=== PATIENT | female | born 1940 | race Caucasian/White ===

== ENCOUNTER → 2017-02-26 | Outpatient (CLI) | payer MEDICARE, OTHER | LOC: RAD 12:53 | PROVIDERS: ATTEND Internal Medicine | DX: M81.0 Age-related osteoporosis without current pathological fracture (principal) | CPT/HCPCS: 77080 ==

== ENCOUNTER 2019-10-26 13:00 | Inpatient (IN) | payer MEDICARE, OTHER ==
--- NOTE | 2019-10-26 14:48 | ER Document Report ---
ED Medical Screen (RME) - General Chief Complaint: Flank Pain Stated Complaint: LOWER BACK PAIN Time Seen by Provider: 10/26/19 14:45 Primary Care Provider: NORMAN MONTE MD [Primary Care Provider] - Follow up as needed Mode of Arrival: Wheelchair Information source: Patient Notes: Patient presents emergency department with left-sided flank pain for the past couple weeks. Denies fall. Denies injury to her back. Reports she was taking Advil and ibuprofen for the pain and it was working but not helping anymore. She denies fever vomiting diarrhea. She denies pain with void. Reports she has a history of high blood pressure. I have greeted and performed a rapid initial assessment of this patient. A comprehensive ED assessment and evaluation of the patient, analysis of test results and completion of the medical decision making process will be conducted by additional ED providers. TRAVEL OUTSIDE OF THE [place] IN LAST 30 DAYS: No - Related Data Allergies/Adverse Reactions: No Known Allergies Allergy (Verified 10/26/19 14:44) Physical Exam - Vital signs Vitals: Temp Pulse Resp BP Pulse Ox 97.6 F 75 16 160/85 H 94 10/26/19 13:25 10/26/19 13:25 10/26/19 13:25 10/26/19 13:25 10/26/19 13:25 Course - Vital Signs Vital signs: Temp Pulse Resp BP Pulse Ox 97.6 F 75 16 160/85 H 94 10/26/19 13:25 10/26/19 13:25 10/26/19 13:25 10/26/19 13:25 10/26/19 13:25 Doctor's Discharge - Discharge Referrals: NORMAN MONTE MD [Primary Care Provider] - Follow up as needed
[2019-10-26 15:39] LABS: AMORPHOUS SEDIMENT,URINE TRACE /HPF; APPEARANCE,URINE SLIGHTLY-CLOUDY; BILIRUBIN,URINE NEGATIVE (NEGATIVE); COLOR,URINE YELLOW; GLUCOSE, URINE NEGATIVE (NEGATIVE); KETONES,URINE NEGATIVE (NEGATIVE); PROTEIN,URINE 30 mg/dL (NEGATIVE); URINE SPECIFIC GRAVITY 1.009; UROBILINOGEN,URINE NEGATIVE mg/dL (<2.0)
[2019-10-26 16:00] LABS: ALBUMIN 4.5 g/dL (3.5-5.0); ALKALINE PHOSPHATASE 74 U/L (38-126); ANION GAP 15 (5-19); ASPARTATE AMINO TRANSFERASE 31 U/L (14-36); BILIRUBIN,DIRECT 0.2 mg/dL (0.0-0.4); BLOOD UREA NITROGEN 10 mg/dL (7-20); CALCIUM 9.9 mg/dL (8.4-10.2); CARBON DIOXIDE 30 mmol/L (22-30); CHLORIDE 72 mmol/L (98-107); GLUCOSE 131 mg/dL (75-110); TOTAL PROTEIN 8.1 g/dL (6.3-8.2)
[2019-10-26 16:13] LABS: POTASSIUM 2.7 mmol/L (3.6-5.0)
[2019-10-26] MEDS ORDERED: POTASSI CL 40 MEQ/NS 1L 1,000 ML IV PRN (16:14)
--- NOTE | 2019-10-26 17:11 | ER Document Report ---
ED General - General Chief Complaint: Flank Pain Stated Complaint: LOWER BACK PAIN Time Seen by Provider: 10/26/19 14:45 Mode of Arrival: Wheelchair Information source: Patient Notes: 79-year-old woman presents to the emergency department with a complaint of back pain. Son notes that she began complaining of pain after bending over and may have pulled something. She also has had a 3-day history of no bowel movement and thought that she is constipated. Patient has no fever, nausea vomiting, or associated palpitations. TRAVEL OUTSIDE OF THE [place] IN LAST 30 DAYS: No - Related Data Allergies/Adverse Reactions: No Known Allergies Allergy (Verified 10/26/19 14:44) Past Medical History - General Information source: Patient - Social History Smoking Status: Current Every Day Smoker Family History: Reviewed & Not Pertinent Patient has suicidal ideation: No Patient has homicidal ideation: No Review of Systems - Review of Systems Notes: Constitutional: Negative for fever. HENT: Negative for sore throat. Eyes: Negative for visual changes. Cardiovascular: Negative for chest pain. Respiratory: Negative for shortness of breath. Gastrointestinal:+ constipation Genitourinary: Negative for dysuria. Musculoskeletal: + back pain. Skin: Negative for rash. Neurological: Negative for headaches, weakness or numbness. 10 point ROS negative except as marked above and in HPI. Physical Exam - Vital signs Vitals: Temp Pulse Resp BP Pulse Ox 97.6 F 75 16 160/85 H 94 10/26/19 13:25 10/26/19 13:25 10/26/19 13:25 10/26/19 13:25 10/26/19 13:25 - Notes Notes: VS: reviewed GEN: pleasant elderly female in no acute distress, HEENT: NCAT, EOMi, PERRL, oropharynx clear, airway patent, mucous membranes moist, EAC clear, TMs intact, NECK: thyroid not palpable, no LAD, carotic pulse 2+B, no bruits, no JVD RESP: clear the wheezes, rales or rhonchi Chest: heart: regular rate and rhythm, no murmur,gallop or rub, nontender ABD: +BS, distended, nontender, no HSM PULSES: 2+femoral B, 1+ PT/DP B EXT no edema to non-tender; non clubbing, cyanosis Back: No no to significantly + tenderness of lumbar region + SKIN: warm and intact NEURO: AOX3; moves all 4 extremities on command,remainder of exam nonfocal Course - Vital Signs Vital signs: Temp Pulse Resp BP Pulse Ox 98.1 F 73 15 150/78 H 97 10/26/19 21:01 10/26/19 20:01 10/26/19 21:01 10/26/19 21:01 10/26/19 21:01 10/26/19 21:25 Patient with significant hyponatremia, hypokalemia, and UTI. Presented with complaint of back pain. I discussed the patient with the hospitalist , he will admit the patient to the hospital for further evaluation and treatment. I discussed that plan with the patient and her son and they are in agreement with staying in the hospital for further treatment. - Laboratory Result Diagrams: 10/26/19 20:05 10/26/19 15:11 Laboratory results interpreted by me: 10/26/19 10/26/19 10/26/19 15:11 15:11 20:05 WBC 12.9 H MCHC 36.4 H Lymph % (Auto) 12.3 L Absolute Neuts (auto) 10.1 H Sodium 117.1 L* Potassium 2.7 L* Chloride 72 L Glucose 131 H Urine Protein 30 H Urine Blood SMALL H Urine Nitrite (Reflex) POSITIVE H Leukocyte Esterase Rfl LARGE H Discharge - Discharge Clinical Impression: Hyponatremia, Hypokalemia UTI (urinary tract infection) Qualifiers: Urinary tract infection type: site unspecified Hematuria presence: without hematuria Qualified Code(s): N39.0 - Urinary tract infection, site not specified Condition: Good Disposition: ADMITTED INPATIENT Admitting Provider: Tamra (Hospitalist) Unit Admitted: Medical Floor
[2019-10-26] MEDS ORDERED: KETOROLAC TROMETHAMINE INJ/PF 30 MG/1 ML SDV IV ONE (17:14)
--- NOTE | 2019-10-26 18:26 | RADIOLOGY REPORT (SQ) ---
EXAM DESCRIPTION: L SPINE WHOLE COMPLETED DATE/TIME: 10/26/2019 5:52 pm REASON FOR STUDY: back pain COMPARISON: None. NUMBER OF VIEWS: Five views including obliques. TECHNIQUE: AP, lateral, oblique, and sacral radiographic images acquired of the lumbar spine. LIMITATIONS: None. FINDINGS: MINERALIZATION: Osteopenia. SEGMENTATION: Normal. No transitional anatomy. ALIGNMENT: Normal. VERTEBRAE: 50% compression of the T12 vertebral body, chronic appearing. DISCS: Multilevel disc space narrowing with osteophytes. POSTERIOR ELEMENTS: Pedicles and facets are intact. No pars defect or posterior arch defects. Facet arthropathy is present. HARDWARE: None in the spine. PARASPINAL SOFT TISSUES: Atherosclerotic calcifications. PELVIS: Intact as visualized. No fractures or worrisome bone lesions. SI joints intact. OTHER: No other significant finding. IMPRESSION: SPONDYLOSIS. 50% compression of the T12 vertebral body, chronic appearing.. TECHNICAL DOCUMENTATION: JOB ID: [id number] [place]-72 2010 [employer]- All Rights Reserved Reading location - IP/workstation name: [email or web address]
[2019-10-26] MEDS ORDERED: CEFTRIAXONE INJ 1000 MG VIAL IV ONE (19:04)
[2019-10-26 20:22] LABS: HEMATOCRIT 39.9 % (36.0-47.0); HEMOGLOBIN 14.5 g/dL (12.0-15.5); MEAN CORPUSCULAR HEMOGLOBIN 30.9 pg (27.0-33.4); MEAN CORPUSCULAR HGB CONC 36.4 g/dL (32.0-36.0); MEAN CORPUSCULAR VOLUME 85 fl (80-97); RED CELL DISTRIBUTION WIDTH 13.8 % (11.5-14.0); WHITE BLOOD COUNT 12.9 10^3/uL (4.0-10.5)
[2019-10-26 20:23] LABS: ABSOLUTE EOSINOPHILS # (AUTO) 0.1 10^3/uL (0.0-0.6); ABSOLUTE LYMPHOCYTES (AUTO) 1.6 10^3/uL (0.5-4.7); ABSOLUTE MONOCYTES (AUTO) 1.2 10^3/uL (0.1-1.4); ABSOLUTE NEUT (AUTO) 10.1 10^3/uL (1.7-8.2); BASOPHILS % (AUTO) 0.3 % (0-2); EOSINOPHILS % (AUTO) 0.5 % (0-6); LYMPHOCYTES % (AUTO) 12.3 % (13-45); MONOCYTES % (AUTO) 8.9 % (3-13); PLATELET COUNT 233 10^3/uL (150-450); TOTAL CELLS COUNTED % (AUTO) 100 %
[2019-10-26] MEDS ORDERED: ONDANSETRON HCL INJ/PF 4 MG/2 ML SDV IV PRN (21:31)
[2019-10-26] MEDS ORDERED: MAGNESIUM HYDROXIDE SUSP 30 ML UDCUP PO PRN (21:31)
[2019-10-26] MEDS ORDERED: LEVALBUTEROL HCL NEB 0.63 MG/3 ML AMPUL NEB PRN (21:31)
[2019-10-26] MEDS ORDERED: MAG HYDROX/AL HYDROX/SIMETH SUSP 30 ML UDCUP PO PRN (21:31)
[2019-10-26] MEDS ORDERED: NICOTINE 21 MG/24 HR PATCH.TD24 TD PRN (21:36)
[2019-10-26] MEDS ORDERED: MORPHINE SULFATE 10 MG/ML INJ IV PRN ×3 (21:36)
[2019-10-26] MEDS: FAMOTIDINE 20 MG TABLET PO SCH (23:13)
[2019-10-26] MEDS: HEPARIN SOD (PORCINE) 5,000 UNIT/ML 1 ML VIAL SUBCUT SCH (23:13)
[2019-10-27] MEDS ORDERED: POTASSI CL 40 MEQ/NS 1L 1,000 ML IV PRN (00:50)
[2019-10-27] MEDS ORDERED: ATORVASTATIN CALCIUM 10 MG TABLET PO ONE (01:00)
[2019-10-27] MEDS: POTASSI CL 20 MEQ/NS 1L 1,000 ML IV PRN ×3 (01:03→17:56)
--- NOTE | 2019-10-27 01:30 | PDOC H&P ---
History of Present Illness Admission Date/PCP: 10/26/2019 21:12 NORMAN MONTE MD Patient complains of: Left flank pain History of Present Illness: KONG CLARK is a 79 year old female who presented to the emergency room with a 2-week history of left flank pain. Patient admits progressively worsening left flank pain for the last 2 weeks having become severe at this time. She describes the pain as a constant ache in the left flank area without radiation. She denies accompanying or associated signs and symptoms. She is tried using ibuprofen for control of her pain at home and though it initially helped it has not been providing her any relief for the last 2 days. She denies prior similar episodes. She has not identified any aggravating or ameliorating factors for her flank pain. In the emergency room she was found to have pyuria with a positive nitrite, a white blood count of 12,900, a sodium of 117.1 and a potassium of 2.7. Blood and urine cultures were obtained and the patient was started on Rocephin IV. She was subsequently admitted to the hospital for further evaluation and treatment. Past Medical History Cardiac Medical History: Reports: Hyperlipidema, Hypertension Denies: Atrial Fibrillation, Congestive Heart Failure, Coronary Artery Disease, Myocardial Infarction Pulmonary Medical History: Denies: Asthma, Chronic Obstructive Pulmonary Disease (COPD), Respiratory Failure EENT Medical History: Denies: Cataracts, Ears - Hearing aids Neurological Medical History: Denies: Hemorrhagic CVA, Ischemic CVA, Seizures Endocrine Medical History: Reports: Hypothyroidism Denies: Diabetes Mellitus Type 1, Diabetes Mellitus Type 2, Hyperthyroidism, Obesity Renal/ Medical History: Denies: Chronic Kidney Disease, Nephrolithiasis Malignancy Medical History: Reports: None Musculoskeltal Medical History: Reports: Other - Senile osteoporosis Denies: Arthritis, Gout Skin Medical History: Denies: Eczema, Psoriasis Psychiatric Medical History: Denies: Alcohol Dependency, Substance Abuse, Tobacco Dependency Traumatic Medical History: Reports: None Hematology: Denies: Anemia, Bleeding Tendencies Infectious Medical History: Reports: None Past Surgical History Past Surgical History: Reports: Other - Bilateral breast augmentation Social History Information Source: Patient Lives with: Spouse/Significant other Smoking Status: Current Every Day Smoker Electronic Cigarette use?: No Frequency of Alcohol Use: None Hx Recreational Drug Use: No Drugs: None Hx Prescription Drug Abuse: No - Advance Directive Resuscitation Status: Full Code Surrogate healthcare decision maker:: Bennett Clark Family History Family History: Hyperlipidemia, Hypertension, Thyroid Disfunction. denies: CAD, DM, Malignancy Parental Family History Reviewed: Yes Children Family History Reviewed: No Sibling(s) Family History Reviewed.: Yes Medication/Allergy Home Medications: Atenolol [Tenormin 50 mg Tablet] 50 mg PO DAILY 10/26/19 Atorvastatin Calcium [Lipitor 10 mg Tablet] 10 mg PO QHS 10/26/19 Cetirizine HCl [Zyrtec 10 mg Tablet] 10 mg PO DAILY 10/26/19 Furosemide [Lasix 20 mg Tablet] 20 mg PO DAILY 10/26/19 Hydrochlorothiazide [Hydrodiuril 12.5 mg Tablet] 12.5 mg PO DAILY 10/26/19 Levothyroxine Sodium [Synthroid 0.075 mg Tablet] 0.075 mg PO Q6AM 10/26/19 Nifedipine [Procardia Xl] 90 mg PO DAILY 10/26/19 Umeclidinium Brm/Vilanterol Tr [Anoro Ellipta 62.5-25 Mcg INH] 1 each IH DAILY 10/26/19 Allergies/Adverse Reactions: No Known Allergies Allergy (Verified 10/26/19 14:44) Review of Systems Constitutional: ABSENT: chills, fever(s) Eyes: ABSENT: visual disturbances, other - Eye pain Ears: ABSENT: hearing changes, other - Ear pain Nose, Mouth, and Throat: ABSENT: headache(s), mouth pain, sore throat Cardiovascular: ABSENT: chest pain, palpitations Respiratory: ABSENT: cough, dyspnea Gastrointestinal: PRESENT: constipation - X1 week. ABSENT: abdominal pain, diarrhea, nausea, vomiting Genitourinary: PRESENT: as per HPI, other - Left flank pain. ABSENT: difficulty urinating, dysuria, hematuria, nocturia Musculoskeletal: ABSENT: back pain, joint swelling, muscle weakness Integumentary: ABSENT: pruritus, rash Neurological: ABSENT: confusion, convulsions, focal weakness, memory loss, syncope Psychiatric: ABSENT: anxiety, depression Endocrine: ABSENT: cold intolerance, heat intolerance Hematologic/Lymphatic: ABSENT: easy bleeding, easy bruising Allergic/Immunologic: ABSENT: seasonal rhinorrhea Physical Exam Vital Signs: Temp Pulse Resp BP Pulse Ox 98 F 73 16 174/74 H 98 10/26/19 20:01 10/26/19 20:01 10/26/19 20:01 10/26/19 20:01 10/26/19 20:01 Intake & Output 10/24/19 10/25/19 10/26/19 23:59 23:59 23:59 Weight 69.3 kg General appearance: PRESENT: no acute distress, cooperative Head exam: PRESENT: atraumatic, normocephalic Eye exam: PRESENT: conjunctiva pink. ABSENT: conjunctival injection, scleral icterus Ear exam: PRESENT: normal external ear exam. ABSENT: bleeding, drainage Mouth exam: PRESENT: dry mucosa, neck supple Neck exam: ABSENT: JVD, thyromegaly, tracheal deviation Respiratory exam: PRESENT: clear to auscultation kamilah, symmetrical, unlabored Cardiovascular exam: PRESENT: RRR. ABSENT: clicks, gallop, rubs Pulses: PRESENT: normal radial pulses, normal dorsalis pedis pul Vascular exam: PRESENT: normal capillary refill. ABSENT: pallor GI/Abdominal exam: PRESENT: normal bowel sounds, soft, tenderness - Severe left flank tenderness to percussion/palpation Rectal exam: PRESENT: deferred Extremities exam: ABSENT: joint swelling, pedal edema Musculoskeletal exam: ABSENT: deformity, dislocation Neurological exam: PRESENT: alert, oriented to person, oriented to place, oriented to time, oriented to situation, CN II-XII grossly intact. ABSENT: motor sensory deficit Psychiatric exam: PRESENT: appropriate affect, normal mood Skin exam: PRESENT: dry, intact, warm. ABSENT: jaundice, rash, urticaria Results Laboratory Results: 10/26/19 20:05 10/26/19 15:11 10/26/19 10/26/19 10/26/19 15:11 15:11 15:11 WBC Cancelled RBC Cancelled Hgb Cancelled Hct Cancelled MCV Cancelled MCH Cancelled MCHC Cancelled RDW Cancelled Plt Count Cancelled Seg Neutrophils % Cancelled Sodium 117.1 L* Potassium 2.7 L* Chloride 72 L Carbon Dioxide 30 Anion Gap 15 BUN 10 Creatinine 0.55 Est GFR ( Amer) > 60 Glucose 131 H Calcium 9.9 Total Bilirubin 1.0 AST 31 Alkaline Phosphatase 74 Total Protein 8.1 Albumin 4.5 Urine Color YELLOW Urine Appearance SLIGHTLY-CLOUDY Urine pH 6.0 Ur Specific [place] 1.009 Urine Protein 30 H Urine Glucose (UA) NEGATIVE Urine Ketones NEGATIVE Urine Blood SMALL H Urine RBC (Auto) 6 10/26/19 10/26/19 16:55 20:05 WBC Cancelled 12.9 H RBC Cancelled 4.70 Hgb Cancelled 14.5 Hct Cancelled 39.9 MCV Cancelled 85 MCH Cancelled 30.9 MCHC Cancelled 36.4 H RDW Cancelled 13.8 Plt Count Cancelled 233 Seg Neutrophils % Cancelled 78.0 Sodium Potassium Chloride Carbon Dioxide Anion Gap BUN Creatinine Est GFR ( Amer) Glucose Calcium Total Bilirubin AST Alkaline Phosphatase Total Protein Albumin Urine Color Urine Appearance Urine pH Ur Specific [place] Urine Protein Urine Glucose (UA) Urine Ketones Urine Blood Urine RBC (Auto) Impressions: Lumbar Spine X-Ray 10/26/19 17:13 IMPRESSION: SPONDYLOSIS. 50% compression of the T12 vertebral body, chronic appearing.. Assessment and Plan - Diagnosis (1) UTI (urinary tract infection) Qualifiers: Urinary tract infection type: acute pyelonephritis Qualified Code(s): N10 - Acute pyelonephritis Is this a current diagnosis for this admission?: Yes (2) Hyponatremia Is this a current diagnosis for this admission?: Yes (3) Hypokalemia Is this a current diagnosis for this admission?: Yes (4) Essential hypertension Is this a current diagnosis for this admission?: Yes (5) Hyperlipidemia, unspecified Qualifiers: Hyperlipidemia type: unspecified Qualified Code(s): E78.5 - Hyperlipidemia, unspecified Is this a current diagnosis for this admission?: Yes (6) Hypothyroidism Qualifiers: Hypothyroidism type: acquired Qualified Code(s): E03.9 - Hypothyroidism, unspecified Is this a current diagnosis for this admission?: Yes (7) Senile osteoporosis Is this a current diagnosis for this admission?: Yes (8) Tobacco use disorder, continuous Is this a current diagnosis for this admission?: Yes - Plan Summary Summary: Patient is admitted to the medical floor where she will receive routine supportive and symptomatic cares. She will be treated with IV fluid utilizing normal saline with 20 mEq of KCl per liter at 167 mL/h. She will also be star vadim on oral supplements for potassium and sodium utilizing potassium chloride extended release and sodium bicarbonate. She will receive IV antibiotics with Rocephin 1 g every 24 hours pending results of her blood and urine cultures. She will receive morphine sulfate 2 to 4 mg IV every 2 hours on a as needed basis using a sliding pain scale for dosage. Daily CBCs and metabolic profiles with magnesium levels will be obtained as needed. Patient will be continued on her usual home medications once her medication list has been verified and reconciled. - Time Time Spent with patient: 15-24 minutes Smoking Cessation Education: 3 to 10 minutes Medications reviewed and adjusted accordingly: Yes Anticipated discharge: Home - Inpatient Certification Based on my medical assessment, after consideration of the patient's comorbidities, presenting symptoms, or acuity I expect that the services needed warrant INPATIENT care.: Yes I certify that my determination is in accordance with my understanding of Medicare's requirements for reasonable and necessary INPATIENT services [42 CFR 412.3e].: Yes Medical Necessity: Need Close Monitoring Due to Risk of Patient Decompensation, Need For IV Fluids, Need for Pain Control, Need for IV Antibiotics
[2019-10-27] MEDS: LEVOTHYROXINE SODIUM 0.075 MG TABLET PO SCH (05:28)
[2019-10-27] MEDS: HEPARIN SOD (PORCINE) 5,000 UNIT/ML 1 ML VIAL SUBCUT SCH ×3 (05:28→21:24)
[2019-10-27 06:08] LABS: ALBUMIN 3.5 g/dL (3.5-5.0); ALKALINE PHOSPHATASE 59 U/L (38-126); ASPARTATE AMINO TRANSFERASE 26 U/L (14-36); BILIRUBIN,DIRECT 0.2 mg/dL (0.0-0.4); BILIRUBIN,TOTAL 0.7 mg/dL (0.2-1.3); BLOOD UREA NITROGEN 10 mg/dL (7-20); CALCIUM 8.3 mg/dL (8.4-10.2); CARBON DIOXIDE 30 mmol/L (22-30); CHLORIDE 79 mmol/L (98-107); CHOLESTEROL 127.39 mg/dL (0-200); DIRECT LDL 54 mg/dL (<100); GLUCOSE 99 mg/dL (75-110); TOTAL PROTEIN 6.2 g/dL (6.3-8.2); TRIGLYCERIDES 89 mg/dL (<150)
[2019-10-27 06:15] LABS: ANION GAP 10 (5-19)
[2019-10-27 06:18] LABS: POTASSIUM 2.7 mmol/L (3.6-5.0)
[2019-10-27 07:07] LABS: HEMATOCRIT 35.7 % (36.0-47.0); MEAN CORPUSCULAR HEMOGLOBIN 30.9 pg (27.0-33.4); MEAN CORPUSCULAR HGB CONC 36.3 g/dL (32.0-36.0); MEAN CORPUSCULAR VOLUME 85 fl (80-97); RED BLOOD COUNT 4.19 10^6/uL (3.72-5.28); RED CELL DISTRIBUTION WIDTH 13.4 % (11.5-14.0); WHITE BLOOD COUNT 10.1 10^3/uL (4.0-10.5)
[2019-10-27 08:01] LABS: PLATELET COUNT 242 10^3/uL (150-450)
[2019-10-27] MEDS: SODIUM BICARBONATE 650 MG TABLET PO SCH ×4 (08:24→21:23)
[2019-10-27] MEDS: POTASSIUM CHLORIDE 10 MEQ TABLET.ER PO SCH ×3 (08:24→17:49)
[2019-10-27] MEDS: FAMOTIDINE 20 MG TABLET PO SCH ×2 (10:21→21:23)
[2019-10-27] MEDS: CEFTRIAXONE 1 GM/D5W RTU 1 GM/50 ML RTUPB IV SCH (10:21)
[2019-10-27] MEDS: CETIRIZINE 10 MG TABLET PO SCH (10:21)
[2019-10-27] MEDS: DOCUSATE SODIUM 100 MG CAPSULE PO SCH ×2 (10:21→17:49)
[2019-10-27] MEDS: ATENOLOL 50 MG TABLET PO SCH (10:21)
[2019-10-27] MEDS: ACETAMINOPHEN 325 MG TABLET PO PRN (10:24)
[2019-10-27] MEDS ORDERED: MORPHINE SULFATE 10 MG/ML INJ IV PRN (11:59)
[2019-10-27 15:34] LABS: ANION GAP 11 (5-19); BLOOD UREA NITROGEN 13 mg/dL (7-20); CALCIUM 8.2 mg/dL (8.4-10.2); CARBON DIOXIDE 27 mmol/L (22-30); CHLORIDE 82 mmol/L (98-107); GLUCOSE 137 mg/dL (75-110); POTASSIUM 3.2 mmol/L (3.6-5.0)
--- NOTE | 2019-10-27 18:13 | PDOC PROGRESS REPORT ---
Subjective Progress Note for:: 10/27/19 Subjective:: The patient is an 79 year old female with a past medical history of HTN, HLD, and hypothyroidism who was admitted 10/26/19 for pyleonephritis. The patient was seen on afternoon rounds. She was found resting in bed, comfortably, on room air. She reports that her pain is significantly improved. She does report continued flank pain, though significantly improved. She denies urinary urgency or frequency at this time. She further denies fever, chills, headache, blurred vision, chest pain, palpitations, dyspnea, orthopnea, cough, abdominal pain, nausea and vomiting. She has no questions or concerns at this time. No concerns per nursing. Reason For Visit: ACUTE LEFT PYELONEPHRITIS,HYPONATUREMIA,HYPOKALEMI Physical Exam Vital Signs: Temp Pulse Resp BP Pulse Ox 97.8 F 73 16 161/68 H 94 10/27/19 01:09 10/27/19 01:09 10/27/19 01:09 10/27/19 01:09 10/27/19 01:09 Intake & Output 10/26/19 10/27/19 10/28/19 06:59 06:59 06:59 Intake Total 220 1050 Balance 220 1050 Weight 68 kg General appearance: PRESENT: no acute distress, well-developed, well-nourished Head exam: PRESENT: atraumatic, normocephalic Eye exam: PRESENT: conjunctiva pink, EOMI, PERRLA. ABSENT: scleral icterus Ear exam: PRESENT: normal external ear exam Mouth exam: PRESENT: moist, tongue midline Neck exam: ABSENT: carotid bruit, JVD, lymphadenopathy, thyromegaly Respiratory exam: PRESENT: clear to auscultation kamilah. ABSENT: rales, rhonchi, wheezes Cardiovascular exam: PRESENT: RRR. ABSENT: diastolic murmur, rubs, systolic murmur Pulses: PRESENT: normal dorsalis pedis pul Vascular exam: PRESENT: normal capillary refill GI/Abdominal exam: PRESENT: normal bowel sounds, soft. ABSENT: distended, guarding, mass, organolmegaly, rebound, tenderness Rectal exam: PRESENT: deferred Extremities exam: PRESENT: full ROM. ABSENT: calf tenderness, clubbing, pedal edema Musculoskeletal exam: PRESENT: ambulatory Neurological exam: PRESENT: alert, awake, oriented to person, oriented to place, oriented to time, oriented to situation, CN II-XII grossly intact. ABSENT: motor sensory deficit Psychiatric exam: PRESENT: appropriate affect, normal mood. ABSENT: homicidal ideation, suicidal ideation Skin exam: PRESENT: dry, intact, warm. ABSENT: cyanosis, rash Results Laboratory Results: 10/27/19 06:59 10/27/19 14:56 10/26/19 10/26/19 10/26/19 15:11 16:55 20:05 WBC Cancelled 12.9 H RBC Cancelled 4.70 Hgb Cancelled 14.5 Hct Cancelled 39.9 MCV Cancelled 85 MCH Cancelled 30.9 MCHC Cancelled 36.4 H RDW Cancelled 13.8 Plt Count Cancelled 233 Seg Neutrophils % Cancelled 78.0 Sodium Potassium Chloride Carbon Dioxide Anion Gap BUN Creatinine Est GFR ( Amer) Glucose Calcium Magnesium 1.3 L Total Bilirubin AST Alkaline Phosphatase Total Protein Albumin Triglycerides Cholesterol LDL Cholesterol Direct VLDL Cholesterol HDL Cholesterol TSH 10/27/19 10/27/19 10/27/19 04:48 04:48 04:48 WBC Cancelled RBC Cancelled Hgb Cancelled Hct Cancelled MCV Cancelled MCH Cancelled MCHC Cancelled RDW Cancelled Plt Count Cancelled Seg Neutrophils % Sodium 119.1 L* Potassium 2.7 L* Chloride 79 L Carbon Dioxide 30 Anion Gap 10 BUN 10 Creatinine 0.50 L Est GFR ( Amer) > 60 Glucose 99 Calcium 8.3 L Magnesium 1.3 L Total Bilirubin 0.7 AST 26 Alkaline Phosphatase 59 Total Protein 6.2 L Albumin 3.5 Triglycerides 89 Cholesterol 127.39 LDL Cholesterol Direct 54 VLDL Cholesterol 18.0 HDL Cholesterol 54 TSH 2.53 10/27/19 10/27/19 06:59 14:56 WBC 10.1 RBC 4.19 Hgb 13.0 Hct 35.7 L MCV 85 MCH 30.9 MCHC 36.3 H RDW 13.4 Plt Count 242 Seg Neutrophils % Sodium 120.2 L* Potassium 3.2 L Chloride 82 L Carbon Dioxide 27 Anion Gap 11 BUN 13 Creatinine 0.58 Est GFR ( Amer) > 60 Glucose 137 H Calcium 8.2 L Magnesium Total Bilirubin AST Alkaline Phosphatase Total Protein Albumin Triglycerides Cholesterol LDL Cholesterol Direct VLDL Cholesterol HDL Cholesterol TSH Impressions: Lumbar Spine X-Ray 10/26/19 17:13 IMPRESSION: SPONDYLOSIS. 50% compression of the T12 vertebral body, chronic appearing.. Assessment and Plan - Diagnosis (1) Pyelonephritis Is this a current diagnosis for this admission?: Yes Plan: Blood cultures pending. Urine culture shows gram-negative rods. Patient was admitted to the medical floor. She is empirically placed on IV Rocephin. We will continue IV fluids. Antiemetics and analgesics as needed. (2) Essential hypertension Is this a current diagnosis for this admission?: Yes Plan: We will continue the patient's home medication regiment of atenolol and Procard ia. Cardiac diet. (3) Hyperlipidemia, unspecified Qualifiers: Hyperlipidemia type: unspecified Qualified Code(s): E78.5 - Hyperlipidemia, unspecified Is this a current diagnosis for this admission?: Yes Plan: Continue home dose statin. Cardiac diet. (4) Hypokalemia Is this a current diagnosis for this admission?: Yes Plan: The patient has received a combination of IV and p.o. replacement. Serial chemistries and continue to replace as needed. (5) Hyponatremia Is this a current diagnosis for this admission?: Yes Plan: Improved; 117-> 120 Continue gentle maintenance IV fluids. Serial chemistries. Seizure precautions. Fall precautions. (6) Hypothyroidism Qualifiers: Hypothyroidism type: acquired Qualified Code(s): E03.9 - Hypothyroidism, unspecified Is this a current diagnosis for this admission?: Yes Plan: TSH 2.53. Continue home dose levothyroxine. (7) Senile osteoporosis Is this a current diagnosis for this admission?: Yes Plan: Continue home dose calcium. Fall precautions. (8) Tobacco use disorder, continuous Is this a current diagnosis for this admission?: Yes Plan: Smoking cessation encouraged. Nicotine replacements provided. (9) UTI (urinary tract infection) Qualifiers: Urinary tract infection type: acute pyelonephritis Qualified Code(s): N10 - Acute pyelonephritis Is this a current diagnosis for this admission?: Yes Plan: Evaluation management as a #1. - Time Time Spent with patient: 25-34 minutes Medications reviewed and adjusted accordingly: Yes Anticipated discharge: Home Within: within 72 hours - Pending electrolyte correction.
[2019-10-27] MEDS ORDERED: NORMAL SALINE 1000 ML 1,000 ML IV PRN (19:06)
[2019-10-27] MEDS: ATORVASTATIN CALCIUM 10 MG TABLET PO SCH (21:23)
[2019-10-27] MEDS: MELATONIN 5 MG TABLET PO PRN (21:23)
[2019-10-27 22:49] LABS: ANION GAP 8 (5-19); BLOOD UREA NITROGEN 13 mg/dL (7-20); CARBON DIOXIDE 29 mmol/L (22-30); CHLORIDE 86 mmol/L (98-107); GLUCOSE 120 mg/dL (75-110); POTASSIUM 3.9 mmol/L (3.6-5.0)
[2019-10-28 05:04] LABS: ANION GAP 8 (5-19); BLOOD UREA NITROGEN 9 mg/dL (7-20); CALCIUM 8.2 mg/dL (8.4-10.2); CARBON DIOXIDE 28 mmol/L (22-30); CHLORIDE 92 mmol/L (98-107); GLUCOSE 109 mg/dL (75-110); POTASSIUM 3.8 mmol/L (3.6-5.0)
[2019-10-28] MEDS: LEVOTHYROXINE SODIUM 0.075 MG TABLET PO SCH (05:31)
[2019-10-28] MEDS: HEPARIN SOD (PORCINE) 5,000 UNIT/ML 1 ML VIAL SUBCUT SCH ×3 (05:31→21:04)
[2019-10-28] MEDS: POTASSIUM CHLORIDE 10 MEQ TABLET.ER PO SCH (08:07)
[2019-10-28] MEDS: CALCIUM CARBONATE 500 MG TABLET PO SCH ×2 (09:23→18:14)
[2019-10-28] MEDS: DOCUSATE SODIUM 100 MG CAPSULE PO SCH ×2 (09:23→18:14)
[2019-10-28] MEDS: FAMOTIDINE 20 MG TABLET PO SCH ×2 (09:23→21:04)
[2019-10-28] MEDS: CETIRIZINE 10 MG TABLET PO SCH (09:23)
[2019-10-28] MEDS: ATENOLOL 50 MG TABLET PO SCH (09:23)
[2019-10-28] MEDS: NIFEDIPINE 30 MG TAB.ER.24 PO SCH (09:24)
[2019-10-28] MEDS: CEFTRIAXONE 1 GM/D5W RTU 1 GM/50 ML RTUPB IV SCH (09:24)
[2019-10-28] MEDS ORDERED: NIFEDIPINE 90 MG PO SCH (10:00)
[2019-10-28] MEDS: OXYCODONE-ACETAMINOPHEN 5-325 MG TABLET PO PRN (13:47)
--- NOTE | 2019-10-28 15:58 | PDOC PROGRESS REPORT ---
Subjective Progress Note for:: 10/28/19 Subjective:: The patient is an 79 year old female with a past medical history of HTN, HLD, and hypothyroidism who was admitted 10/26/19 for pyleonephritis. The patient was seen on afternoon rounds. She was found resting in bed, comfortably, on room air. She reports that her pain is significantly improved. She denies urinary urgency or frequency at this time. Hopeful to discharge home soon. She further denies fever, chills, headache, blurred vision, chest pain, palpitations, dyspnea, orthopnea, cough, abdominal pain, nausea and vomiting. She has no questions or concerns at this time. No concerns per nursing. Reason For Visit: ACUTE LEFT PYELONEPHRITIS,HYPONATUREMIA,HYPOKALEMI Physical Exam Vital Signs: Temp Pulse Resp BP Pulse Ox 98.0 F 50 L 16 126/58 H 97 10/27/19 16:16 10/27/19 16:16 10/27/19 16:16 10/27/19 16:16 10/27/19 16:16 Intake & Output 10/27/19 10/28/19 10/29/19 06:59 06:59 06:59 Intake Total 220 2490 50 Output Total 500 Balance 220 1989 50 Weight 68 kg 68.5 kg General appearance: PRESENT: no acute distress, cooperative, well-developed, well-nourished Head exam: PRESENT: atraumatic, normocephalic Eye exam: PRESENT: conjunctiva pink, EOMI, PERRLA. ABSENT: scleral icterus Ear exam: PRESENT: normal external ear exam Mouth exam: PRESENT: moist, tongue midline Respiratory exam: PRESENT: clear to auscultation kamilah, symmetrical, unlabored. ABSENT: rales, rhonchi, wheezes Cardiovascular exam: PRESENT: RRR, +S1, +S2. ABSENT: diastolic murmur, rubs, systolic murmur Pulses: PRESENT: normal dorsalis pedis pul Vascular exam: PRESENT: normal capillary refill GI/Abdominal exam: PRESENT: normal bowel sounds, soft. ABSENT: distended, guarding, mass, organolmegaly, rebound, tenderness Rectal exam: PRESENT: deferred Extremities exam: PRESENT: full ROM. ABSENT: calf tenderness, clubbing, pedal edema Neurological exam: PRESENT: alert, awake, oriented to person, oriented to place, oriented to time, oriented to situation, CN II-XII grossly intact. ABSENT: motor sensory deficit Psychiatric exam: PRESENT: appropriate affect, normal mood. ABSENT: homicidal ideation, suicidal ideation Skin exam: PRESENT: dry, intact, warm. ABSENT: cyanosis, rash Results Laboratory Results: 10/27/19 06:59 10/28/19 04:15 10/27/19 10/27/19 10/28/19 14:56 22:10 04:15 Sodium 120.2 L* 123.0 L 128.1 L Potassium 3.2 L 3.9 3.8 Chloride 82 L 86 L 92 L Carbon Dioxide 27 29 28 Anion Gap 11 8 8 BUN 13 13 9 Creatinine 0.58 0.70 0.60 Est GFR ( Amer) > 60 > 60 > 60 Glucose 137 H 120 H 109 Calcium 8.2 L 8.0 L 8.2 L 10/26/19 15:11 Clean Catch Midstream Urine Culture - Final Escherichia Coli Impressions: Lumbar Spine X-Ray 10/26/19 17:13 IMPRESSION: SPONDYLOSIS. 50% compression of the T12 vertebral body, chronic appearing.. Assessment and Plan - Diagnosis (1) Pyelonephritis Is this a current diagnosis for this admission?: Yes Plan: Blood cultures are negative at 24 hours. Urine culture shows pansensitive E. coli. Patient was admitted to the medical floor. She is empirically placed on IV Rocephin. Antiemetics and analgesics as needed. (2) Essential hypertension Is this a current diagnosis for this admission?: Yes Plan: We will continue the patient's home medication regiment of atenolol and Procardia. Cardiac diet. (3) Hyperlipidemia, unspecified Qualifiers: Hyperlipidemia type: unspecified Qualified Code(s): E78.5 - Hyperlipidemia, unspecified Is this a current diagnosis for this admission?: Yes Plan: Continue home dose statin. Cardiac diet. (4) Hypokalemia Is this a current diagnosis for this admission?: Yes Plan: Replete Follow-up chemistry and replace as needed. (5) Hyponatremia Is this a current diagnosis for this admission?: Yes Plan: Improved; 117-> 120-> 128 Fluid restricted to 1.5 L daily. Follow-up chemistry Seizure precautions. Fall precautions. (6) Hypothyroidism Qualifiers: Hypothyroidism type: acquired Qualified Code(s): E03.9 - Hypothyroidism, unspecified Is this a current diagnosis for this admission?: Yes Plan: TSH 2.53. Continue home dose levothyroxine. (7) Senile osteoporosis Is this a current diagnosis for this admission?: Yes Plan: Continue home dose calcium. Fall precautions. (8) Tobacco use disorder, continuous Is this a current diagnosis for this admission?: Yes Plan: Smoking cessation encouraged. Nicotine replacements provided. (9) UTI (urinary tract infection) Qualifiers: Urinary tract infection type: acute pyelonephritis Qualified Code(s): N10 - Acute pyelonephritis Is this a current diagnosis for this admission?: Yes Plan: Evaluation management as a #1. - Time Time Spent with patient: 15-24 minutes Medications reviewed and adjusted accordingly: Yes Anticipated discharge: Home Within: within 24 hours
[2019-10-28] MEDS: ATORVASTATIN CALCIUM 10 MG TABLET PO SCH (21:04)
[2019-10-28] MEDS: MELATONIN 5 MG TABLET PO PRN (21:04)
[2019-10-29] MEDS: OXYCODONE-ACETAMINOPHEN 5-325 MG TABLET PO PRN (05:54)
[2019-10-29] MEDS: HEPARIN SOD (PORCINE) 5,000 UNIT/ML 1 ML VIAL SUBCUT SCH ×2 (05:54→13:39)
[2019-10-29] MEDS: LEVOTHYROXINE SODIUM 0.075 MG TABLET PO SCH (05:54)
[2019-10-29 06:18] LABS: ANION GAP 10 (5-19); BLOOD UREA NITROGEN 10 mg/dL (7-20); CALCIUM 8.7 mg/dL (8.4-10.2); CARBON DIOXIDE 28 mmol/L (22-30); CHLORIDE 89 mmol/L (98-107); GLUCOSE 105 mg/dL (75-110); POTASSIUM 3.3 mmol/L (3.6-5.0)
[2019-10-29] MEDS: ACETAMINOPHEN 325 MG TABLET PO PRN (09:17)
[2019-10-29] MEDS: ATENOLOL 50 MG TABLET PO SCH (09:18)
[2019-10-29] MEDS: DOCUSATE SODIUM 100 MG CAPSULE PO SCH (09:18)
[2019-10-29] MEDS: CEFTRIAXONE 1 GM/D5W RTU 1 GM/50 ML RTUPB IV SCH (09:18)
[2019-10-29] MEDS: FAMOTIDINE 20 MG TABLET PO SCH (09:18)
[2019-10-29] MEDS: NIFEDIPINE 30 MG TAB.ER.24 PO SCH (09:18)
[2019-10-29] MEDS: CETIRIZINE 10 MG TABLET PO SCH (09:18)
[2019-10-29] MEDS: CALCIUM CARBONATE 500 MG TABLET PO SCH (09:18)
[2019-10-29] MEDS ORDERED: SODIUM CHLORIDE 1 GM TABLET PO SCH (12:00)
[2019-10-29] MEDS ORDERED: MAGNESIUM HYDROXIDE SUSP 30 ML UDCUP PO ONE (15:15)
[2019-10-29] MEDS ORDERED: BISACODYL 10 MG SUPP.RECT PR ONE (15:15)
[2019-10-29 16:25] LABS: ANION GAP 10 (5-19); BLOOD UREA NITROGEN 15 mg/dL (7-20); CALCIUM 8.8 mg/dL (8.4-10.2); CARBON DIOXIDE 28 mmol/L (22-30); CHLORIDE 88 mmol/L (98-107); GLUCOSE 103 mg/dL (75-110); POTASSIUM 4.1 mmol/L (3.6-5.0)
--- NOTE | 2019-10-29 16:50 | PDOC DISCHARGE SUMMARY ---
Impression - Admit/DC Date/PCP Admission Date/Primary Care Provider: 10/26/19 21:08 NORMAN MONTE MD Discharge Date: 10/29/19 - Discharge Diagnosis (1) Pyelonephritis Is this a current diagnosis for this admission?: Yes (2) Essential hypertension Is this a current diagnosis for this admission?: Yes (3) Hyperlipidemia, unspecified Is this a current diagnosis for this admission?: Yes (4) Hypokalemia Is this a current diagnosis for this admission?: Yes (5) Hyponatremia Is this a current diagnosis for this admission?: Yes (6) Hypothyroidism Is this a current diagnosis for this admission?: Yes (7) Senile osteoporosis Is this a current diagnosis for this admission?: Yes (8) Tobacco use disorder, continuous Is this a current diagnosis for this admission?: Yes (9) UTI (urinary tract infection) Is this a current diagnosis for this admission?: Yes - Additional Information Resuscitation Status: Full Code Discharge Diet: Other (Comments) - Fluid restricted to 2 L daily Discharge Activity: Activity As Tolerated, Balance Activity w/Rest Referrals: NORMAN MONTE MD [Primary Care Provider] - 11/09/19 10:00 am Prescriptions: Nicotine [Nicoderm 21 mg/24 Hr Transderm Patch] 1 each TD DAILYP PRN #30 patch.td24 PRN Reason: Sodium Chloride [Sodium Chloride 1 gm Tablet] 1 gm PO BID #20 tablet Home Medications: Atenolol [Tenormin 50 mg Tablet] 50 mg PO DAILY 10/26/19 Atorvastatin Calcium [Lipitor 10 mg Tablet] 10 mg PO QHS 10/26/19 Cetirizine HCl [Zyrtec 10 mg Tablet] 10 mg PO DAILY 10/26/19 Levothyroxine Sodium [Synthroid 0.075 mg Tablet] 0.075 mg PO Q6AM 10/26/19 Nifedipine [Procardia Xl] 90 mg PO DAILY 10/26/19 Umeclidinium Brm/Vilanterol Tr [Anoro Ellipta 62.5-25 Mcg INH] 1 each IH DAILY 10/26/19 Calcium Carbonate [Os-Eduardo 500 mg Tablet (Oyster-Shell)] 500 mg PO BID 10/27/19 Acetaminophen [Tylenol 325 mg Tablet] 650 mg PO Q4HP PRN tablet 10/29/19 Docusate Sodium [Colace 100 mg Capsule] 100 mg PO BID capsule 10/29/19 Nicotine [Nicoderm 21 mg/24 Hr Transderm Patch] 1 each TD DAILYP PRN #30 patch.td24 10/29/19 Sodium Chloride [Sodium Chloride 1 gm Tablet] 1 gm PO BID #20 tablet 10/29/19 History of Present Illiness History of Present Illness: Per H&P by Tamra: KONG CLARK is a 79 year old female who presented to the emergency room with a 2-week history of left flank pain. Patient admits progressively worsening left flank pain for the last 2 weeks having become severe at this time. She describes the pain as a constant ache in the left flank area without radiation. She denies accompanying or associated signs and symptoms. She is tried using ibuprofen for control of her pain at home and though it initially helped it has not been providing her any relief for the last 2 days. She denies prior similar episodes. She has not identified any aggravating or ameliorating factors for her flank pain. In the emergency room she was found to have pyuria with a positive nitrite, a white blood count of 12,900, a sodium of 117.1 and a potassium of 2.7. Blood and urine cultures were obtained and the patient was started on Rocephin IV. She was subsequently admitted to the hospital for further evaluation and treatment. Hospital Course Hospital Course: The patient was admitted to the medical floor. She is empirically placed on IV Rocephin for treatment of her UTI/pyelonephritis. Urine cultures demonstrated pansensitive E. coli. Fortunately her blood cultures are negative at 48 hours. The patient's electrolytes were monitored closely; she did receive p.o. and IV potassium supplementation. She was placed on a fluid restriction with subsequent increase in her sodium from 117 to 128. Discussed the patient's hyponatremia with the patient and her son. Both report that the patient's primary care provider had been aware of low sodium for quite some time. She remained asymptomatic and had no signs of acute hyponatremia. Patient's home dose furosemide and hydrochlorothiazide are discontinued. She is provided sodium chloride 1 g tablet to take twice daily. She is recommended to continue fluid restriction at home. At discharge, her sodium has stabilized at 126.2. The patient's other chronic medical conditions remained stable throughout her admission. Patient is discharged home in stable condition. She is advised to follow-up with her primary care provider within 1 week. Recommend that she have repeat chemistry at that time. Complete full course of Cipro for treatment of UTI/pyelonephritis. Return to the emergency department as needed for concerning symptoms. Physical Exam Vital Signs: Temp Pulse Resp BP Pulse Ox 98.0 F 63 16 126/47 H 92 10/28/19 21:22 10/29/19 13:42 10/29/19 13:42 10/28/19 21:22 10/29/19 13:42 Intake & Output 10/28/19 10/29/19 10/30/19 06:59 06:59 06:59 Intake Total 2490 1810 50 Output Total 500 Balance 1989 1809 50 Weight 68.5 kg 68.3 kg General appearance: PRESENT: no acute distress, well-developed, well-nourished Head exam: PRESENT: atraumatic, normocephalic Eye exam: PRESENT: conjunctiva pink, EOMI, PERRLA. ABSENT: scleral icterus Ear exam: PRESENT: normal external ear exam Mouth exam: PRESENT: moist, tongue midline Neck exam: ABSENT: carotid bruit, JVD, lymphadenopathy, thyromegaly Respiratory exam: PRESENT: clear to auscultation kamilah. ABSENT: rales, rhonchi, wheezes Cardiovascular exam: PRESENT: RRR. ABSENT: diastolic murmur, rubs, systolic murmur Pulses: PRESENT: normal dorsalis pedis pul Vascular exam: PRESENT: normal capillary refill GI/Abdominal exam: PRESENT: normal bowel sounds, soft. ABSENT: distended, guarding, mass, organolmegaly, rebound, tenderness Rectal exam: PRESENT: deferred Extremities exam: PRESENT: full ROM. ABSENT: calf tenderness, clubbing, pedal edema Neurological exam: PRESENT: alert, awake, oriented to person, oriented to place, oriented to time, oriented to situation, CN II-XII grossly intact. ABSENT: motor sensory deficit Psychiatric exam: PRESENT: appropriate affect, normal mood. ABSENT: homicidal ideation, suicidal ideation Skin exam: PRESENT: dry, intact, warm. ABSENT: cyanosis, rash Results Laboratory Results: WBC 10.1 10^3/uL (4.0-10.5) 10/27/19 06:59 RBC 4.19 10^6/uL (3.72-5.28) 10/27/19 06:59 Hgb 13.0 g/dL (12.0-15.5) 10/27/19 06:59 Hct 35.7 % (36.0-47.0) L 10/27/19 06:59 MCV 85 fl (80-97) 10/27/19 06:59 MCH 30.9 pg (27.0-33.4) 10/27/19 06:59 MCHC 36.3 g/dL (32.0-36.0) H 10/27/19 06:59 RDW 13.4 % (11.5-14.0) 10/27/19 06:59 Plt Count 242 10^3/uL (150-450) 10/27/19 06:59 Lymph % (Auto) 12.3 % (13-45) L 10/26/19 20:05 [place] % (Auto) 8.9 % (3-13) 10/26/19 20:05 Eos % (Auto) 0.5 % (0-6) 10/26/19 20:05 Baso % (Auto) 0.3 % (0-2) 10/26/19 20:05 Absolute Neuts (auto) 10.1 10^3/uL (1.7-8.2) H 10/26/19 20:05 Absolute Lymphs (auto) 1.6 10^3/uL (0.5-4.7) 10/26/19 20:05 Absolute Monos (auto) 1.2 10^3/uL (0.1-1.4) 10/26/19 20:05 Absolute Eos (auto) 0.1 10^3/uL (0.0-0.6) 10/26/19 20:05 Absolute Basos (auto) 0.0 10^3/uL (0.0-0.2) 10/26/19 20:05 Seg Neutrophils % 78.0 % (42-78) 10/26/19 20:05 Platelet Estimate Cancelled 10/27/19 04:48 Sodium 126.2 mmol/L (137-145) L 10/29/19 15:46 Potassium 4.1 mmol/L (3.6-5.0) 10/29/19 15:46 Chloride 88 mmol/L (98-107) L 10/29/19 15:46 Carbon Dioxide 28 mmol/L (22-30) 10/29/19 15:46 Anion Gap 10 (5-19) 10/29/19 15:46 BUN 15 mg/dL (7-20) 10/29/19 15:46 Creatinine 0.73 mg/dL (0.52-1.25) 10/29/19 15:46 Est GFR ( Amer) > 60 (>60) 10/29/19 15:46 Est GFR (MDRD) Non-Af > 60 (>60) 10/29/19 15:46 Glucose 103 mg/dL (75-110) 10/29/19 15:46 Calcium 8.8 mg/dL (8.4-10.2) 10/29/19 15:46 Magnesium 1.3 mg/dL (1.6-2.3) L 10/27/19 04:48 Total Bilirubin 0.7 mg/dL (0.2-1.3) 10/27/19 04:48 Direct Bilirubin 0.2 mg/dL (0.0-0.4) 10/27/19 04:48 Neonat Total Bilirubin Not Reportable 10/27/19 04:48 Neonat Direct Bilirubin Not Reportable 10/27/19 04:48 Neonat Indirect Bili Not Reportable 10/27/19 04:48 AST 26 U/L (14-36) 10/27/19 04:48 ALT 13 U/L (<35) 10/27/19 04:48 Alkaline Phosphatase 59 U/L (38-126) 10/27/19 04:48 Total Protein 6.2 g/dL (6.3-8.2) L 10/27/19 04:48 Albumin 3.5 g/dL (3.5-5.0) 10/27/19 04:48 Triglycerides 89 mg/dL (<150) 10/27/19 04:48 Cholesterol 127.39 mg/dL (0-200) 10/27/19 04:48 LDL Cholesterol Direct 54 mg/dL (<100) 10/27/19 04:48 VLDL Cholesterol 18.0 mg/dL (10-31) 10/27/19 04:48 HDL Cholesterol 54 mg/dL (>40) 10/27/19 04:48 TSH 2.53 uIU/mL (0.47-4.68) 10/27/19 04:48 Urine Color YELLOW 10/26/19 15:11 Urine Appearance SLIGHTLY-CLOUDY 10/26/19 15:11 Urine pH 6.0 (5.0-9.0) 10/26/19 15:11 Ur Specific [place] 1.009 10/26/19 15:11 Urine Protein 30 mg/dL (NEGATIVE) H 10/26/19 15:11 Urine Glucose (UA) NEGATIVE mg/dL (NEGATIVE) 10/26/19 15:11 Urine Ketones NEGATIVE mg/dL (NEGATIVE) 10/26/19 15:11 Urine Blood SMALL (NEGATIVE) H 10/26/19 15:11 Urine Nitrite (Reflex) POSITIVE (NEGATIVE) H 10/26/19 15:11 Urine Bilirubin NEGATIVE (NEGATIVE) 10/26/19 15:11 Urine Urobilinogen NEGATIVE mg/dL (<2.0) 10/26/19 15:11 Leukocyte Esterase Rfl LARGE (NEGATIVE) H 10/26/19 15:11 Urine RBC (Auto) 6 /HPF 10/26/19 15:11 Urine Bacteria (Auto) 1+ /HPF 10/26/19 15:11 Urine WBC (Reflex) 170 /HPF 10/26/19 15:11 Urine WBC Clumps MOD /HPF 10/26/19 15:11 Squamous Epi Cells Auto 1 /HPF 10/26/19 15:11 Amorphous Sediment Auto TRACE /HPF 10/26/19 15:11 Urine Mucus (Auto) RARE /LPF 10/26/19 15:11 Urine Ascorbic Acid NEGATIVE (NEGATIVE) 10/26/19 15:11 Slides for Path Review Cancelled 10/27/19 04:48 Impressions: Lumbar Spine X-Ray 10/26/19 17:13 IMPRESSION: SPONDYLOSIS. 50% compression of the T12 vertebral body, chronic appearing.. Plan Plan of Treatment: Follow-up with primary care provider within 1 week. Recommend repeat chemistry at this visit to check sodium. Complete full course of antibiotic therapy. Take other medications as prescribed. Limit fluid intake to approximately 2 L daily. Return to the emergency department as needed for concerning symptoms. Time Spent: Greater than 30 Minutes Stroke Is this a Stroke Patient?: No Acute Heart Failure - Is this a Heart Failure Patient?: No
[2019-10-29 17:23] VITALS: BP 161/68
== END 2019-10-29 18:02 | disposition home or self-care (01) | DRG 690 ==
LOC: ER 13:00 → EH 21:08 → 4S 10-27 00:15
PROVIDERS: ADMIT Emergency Medicine; ATTEND Emergency Medicine
DX: N10 Acute pyelonephritis (principal); E87.1 Hypo-osmolality and hyponatremia; E87.6 Hypokalemia; E78.5 Hyperlipidemia, unspecified; E03.9 Hypothyroidism, unspecified; I10 Essential (primary) hypertension; F17.200 Nicotine dependence, unspecified, uncomplicated; M81.0 Age-related osteoporosis without current pathological fracture; B96.20 Unspecified Escherichia coli [E. coli] as the cause of diseases classified elsewhere; Z82.49 Family history of ischemic heart disease and other diseases of the circulatory system; Z83.3 Family history of diabetes mellitus; Z83.438 Family history of other disorder of lipoprotein metabolism and other lipidemia; Z79.899 Other long term (current) drug therapy
CPT/HCPCS: 36415; 72110; 80048; 80053; 80061; 81001; 83735; 84443; 85025; 85027; 87040; 87086; 87088; 87186; 96361; 96374; 99285; J0696; J1644; J1885; J3480; J3490

== ENCOUNTER 2020-01-05 14:25 | Emergency (ER) | payer MEDICARE, OTHER ==
[2020-01-05 16:02] LABS: ALBUMIN 3.8 g/dL (3.5-5.0); ALKALINE PHOSPHATASE 50 U/L (38-126); ANION GAP 10 (5-19); ASPARTATE AMINO TRANSFERASE 25 U/L (14-36); BILIRUBIN,TOTAL 0.4 mg/dL (0.2-1.3); BLOOD UREA NITROGEN 16 mg/dL (7-20); CARBON DIOXIDE 25 mmol/L (22-30); CHLORIDE 101 mmol/L (98-107); CREATINE KINASE < 20 U/L (30-135); GLUCOSE 112 mg/dL (75-110); POTASSIUM 3.3 mmol/L (3.6-5.0); TOTAL PROTEIN 6.7 g/dL (6.3-8.2)
--- NOTE | 2020-01-05 16:05 | ER Document Report ---
ED General - General Chief Complaint: Syncope Stated Complaint: SYNCOPE Time Seen by Provider: 01/05/20 15:33 Primary Care Provider: NORMAN MONTE MD [Primary Care Provider] - Follow up as needed TRAVEL OUTSIDE OF THE [place] IN LAST 30 DAYS: No - HPI Notes: Patient is a 79-year-old female who presents to the emergency department for evaluation after syncopal episode. Evidently she was sitting at the table. She was not feeling well, and complained of this to family. Home health nurse for her was present and took her vital signs. As she was taking her blood pressure she nodded off and had a syncopal episode. Her eyes stayed open but she had no seizure activity. According to the son, patient's heart rate was high and blood pressure was very low. She received nausea medicine and fluids in route. The patient at this point states she has no complaints or concerns. She denies any chest pain. She is seeing, speaking, swallowing without difficulty. She has been taking her medications as prescribed, with the exception of her thyroid medicine, which she believes she is forgotten for a few days. She did states she took it this morning. - Related Data Allergies/Adverse Reactions: No Known Allergies Allergy (Verified 10/26/19 14:44) Home Medications: Meds reviewed with patient Past Medical History - General Information source: Patient - Social History Smoking Status: Current Every Day Smoker Frequency of alcohol use: None Drug Abuse: None Family History: Hyperlipidemia, Hypertension, Thyroid Disfunction. denies: CAD, DM, Malignancy Patient has suicidal ideation: No Patient has homicidal ideation: No - Past Medical History Cardiac Medical History: Reports: Hx Hypercholesterolemia, Hx Hypertension Denies: Hx Atrial Fibrillation, Hx Congestive Heart Failure, Hx Coronary Artery Disease, Hx Heart Attack Pulmonary Medical History: Denies: Hx Asthma, Hx COPD, Hx Respiratory Failure Neurological Medical History: Denies: Hx Seizures Endocrine Medical History: Reports: Hx Hypothyroidism. Denies: Hx Diabetes Mellitus Type 1, Hx Diabetes Mellitus Type 2, Hx Hyperthyroidism Musculoskeletal Medical History: Denies Hx Arthritis, Denies Hx Gout Skin Medical History: Denies Hx Eczema, Denies Hx Psoriasis Psychiatric Medical History: Denies: Hx Depression Past Surgical History: Reports: Other - Bilateral breast augmentation Review of Systems - Review of Systems Constitutional: See HPI Cardiovascular: See HPI -: Yes All other systems reviewed and negative Physical Exam - Vital signs Vitals: Resp Pulse Ox 13 96 01/05/20 14:48 01/05/20 14:48 - Notes Notes: This is a pleasant 79-year-old female who appears her stated age in no acute distress. Vital signs reviewed, please refer to chart. Head is normocephalic, atraumatic. Pupils equal round, reactive to light. Neck is supple without meningismus. Heart is regular rate and rhythm. Lungs are clear to auscultation bilaterally. Abdomen is soft, nontender, normoactive bowel sounds throughout. Extremities without cyanosis, clubbing. Posterior calves are nontender. Peripheral pulses are equal. Skin is warm and dry. Patient is awake, alert, oriented x3. Cranial nerves II - XII are grossly intact without focal neurological deficits. Strength is plus 5 out of 5 bilateral upper and lower extremities. Sensation is intact. Reflexes symmetrical. Intact [id number], rapid alternating movements, [id number]. Course - Re-evaluation Re-evalutation: 01/05/20 16:04 Patient presents to the emergency department for evaluation. She was having her vitals checked during a syncopal episode. She had a drop in her heart rate and her blood pressure. My suspicion is that this was vasovagal. At this point laboratory investigations are ordered. Awaiting orthostatic vital signs. Currently vital signs are stable, we will continue to monitor. 01/05/20 19:14 Laboratory investigations are largely unremarkable. Patient has had no repeat syncopal episodes, has had absolutely no complaints or concerns while she is here. I talked at length with her. Explained to her that she needs to follow- up closely with primary care. It turns out that the patient has her at home on hospice. They have been for over 40 years. She is not been taking care of herself very well. I encouraged her to do so. She needs to follow-up with her primary care provider tomorrow. She voiced understanding to this. She is to return to the ED with worsening or new concerning symptoms of any sort. - Vital Signs Vital signs: Temp Pulse Resp BP Pulse Ox 97.6 F 82 14 132/75 H 96 01/05/20 14:58 01/05/20 14:58 01/05/20 19:00 01/05/20 18:01 01/05/20 19:00 - Laboratory Result Diagrams: 01/05/20 18:25 01/05/20 14:45 Laboratory results interpreted by me: 01/05/20 01/05/20 01/05/20 14:45 15:50 18:25 WBC 12.2 H RDW 15.0 H Plt Count 133 L Absolute Neuts (auto) 9.4 H Sodium 135.8 L Potassium 3.3 L Glucose 112 H Magnesium 1.4 L Creatine Kinase < 20 L Ur Leukocyte Esterase SMALL H - EKG Interpretation by Me Additional EKG results interpreted by me: 01/05/20 16:04 Sinus mechanism with PVCs, PACs. Normal axis. IVCD. Borderline QT interval prolongation. Nonspecific ST changes, but no acute changes concerning for ischemia or infarction. No old studies available for comparison. Discharge - Discharge Clinical Impression: Syncope Qualifiers: Syncope type: unspecified Qualified Code(s): R55 - Syncope and collapse Condition: Stable Disposition: HOME, SELF-CARE Instructions: Syncopal Episode ([facility]) Additional Instructions: It is likely that your syncopal episode was vasovagal, as discussed. Please rest, stay well-hydrated, and continue your regular medications at home as previously prescribed. Follow-up with your primary care provider in 1 to 2 days. Return to the emergency department with worsening or new concerning symptoms of any sort. Forms: Smoking Cessation Education Referrals: NORMAN MONTE MD [Primary Care Provider] - Follow up as needed
[2020-01-05 16:09] LABS: APPEARANCE,URINE CLEAR; BILIRUBIN,URINE NEGATIVE (NEGATIVE); COLOR,URINE STRAW; GLUCOSE, URINE NEGATIVE (NEGATIVE); KETONES,URINE NEGATIVE (NEGATIVE); LEUKOCYTE ESTERASE,URINE SMALL (NEGATIVE); NITRITE,URINE NEGATIVE (NEGATIVE); PROTEIN,URINE NEGATIVE (NEGATIVE); URINE SPECIFIC GRAVITY 1.008; UROBILINOGEN,URINE NEGATIVE mg/dL (<2.0)
[2020-01-05 16:51] LABS: ADD MANUAL MICROSCOPIC YES
[2020-01-05 18:41] LABS: ABSOLUTE EOSINOPHILS # (AUTO) 0.1 10^3/uL (0.0-0.6); ABSOLUTE MONOCYTES (AUTO) 0.6 10^3/uL (0.1-1.4); ABSOLUTE NEUT (AUTO) 9.4 10^3/uL (1.7-8.2); BASOPHILS % (AUTO) 0.3 % (0-2); EOSINOPHILS % (AUTO) 0.4 % (0-6); HEMATOCRIT 39.1 % (36.0-47.0); HEMOGLOBIN 13.4 g/dL (12.0-15.5); LYMPHOCYTES % (AUTO) 16.5 % (13-45); MEAN CORPUSCULAR HEMOGLOBIN 30.6 pg (27.0-33.4); MEAN CORPUSCULAR HGB CONC 34.3 g/dL (32.0-36.0); MEAN CORPUSCULAR VOLUME 89 fl (80-97); MONOCYTES % (AUTO) 5.3 % (3-13); RED BLOOD COUNT 4.39 10^6/uL (3.72-5.28); SEGMENTED NEUTROPHILS % (AUTO) 77.5 % (42-78); TOTAL CELLS COUNTED % (AUTO) 100 %; WHITE BLOOD COUNT 12.2 10^3/uL (4.0-10.5)
[2020-01-05 19:01] LABS: PLATELET COUNT 133 10^3/uL (150-450)
--- NOTE | 2020-01-05 19:35 | EKG REPORT ---
SEVERITY:- ABNORMAL ECG - ATRIAL FIBRILLATION MULTIFORM VENTRICULAR PREMATURE COMPLEXES RIGHT AXIS DEVIATION BORDERLINE PROLONGED QT INTERVAL : Confirmed by: Renita Del Rio 05-Jan-2020 19:34:21
[2020-01-05 19:59] VITALS: BP 145/70
== END 2020-01-05 19:59 | disposition home or self-care (01) ==
LOC: ER 14:25
DX: R55 Syncope and collapse (principal); I49.3 Ventricular premature depolarization; I49.1 Atrial premature depolarization; I10 Essential (primary) hypertension; F17.200 Nicotine dependence, unspecified, uncomplicated; E03.9 Hypothyroidism, unspecified; Z79.899 Other long term (current) drug therapy
CPT/HCPCS: 36415; 80053; 81001; 82550; 83735; 84484; 85025; 93005; 93010; 99284